=== PATIENT | female | born 1980 | race Caucasian/White ===

== ENCOUNTER 2021-08-30 09:10 | Outpatient (CLI) | payer MEDICAID, SELFPAY ==
--- NOTE | 2021-08-30 09:00 | DI.RAD_ITS ---
Exam(s) XR SHOULDER RT COMPLETE 2+V EXAM: XR SHOULDER RT COMPLETE 2+V CLINICAL HISTORY: shoulder pain. TECHNIQUE: 2D digital imaging was performed of the right shoulder. Three images were obtained. AP, Grashey, Y-view and axillary views were obtained. COMPARISON: No exams were available for comparison FINDINGS: BONES: No acute fracture is present. No bony destructive lesion is seen. There is an orthopedic ancho r in the humeral head. JOINTS: There is elevation of the clavicle relative to the acromion suggesting AC joint separation. There is also question of possible resection of a portion of the distal clavicle. Please correlate w ith surgical history. The glenohumeral joint appears well maintained. SOFT TISSUE: Normal. IMPRESSION: 1. Postsurgical changes in the right shoulder. 2. Findings of right AC joint separation. Please correlate with surgical history. 3. No acute fracture. DATA REPOSITORY: RADIATION DOSE DELIVERED:
== END 2021-08-30 09:11 | disposition home or self-care (01) ==
LOC: DIORS 09:10
PROVIDERS: PCP Nurse Practitioner Family; Referring Provider Nurse Practitioner Family; Visit Provider Student in an Organized Health Care Education/Training Program
DX: M25.511 Pain in right shoulder (principal)
CPT/HCPCS: 73030

== ENCOUNTER 2021-09-07 01:38 | Outpatient (CLI) | payer MEDICAID, SELFPAY ==
--- NOTE | 2021-09-07 06:45 | DI.MRI_ITS ---
Exam(s) MR UPPER JOINT RT WO EXAM: MR UPPER JOINT RT WO CLINICAL HISTORY: R SHOULDER PAIN,rotator cuff arthropathy,bursitis,impingement syndrome,. TECHNIQUE: Multiplanar multisequence MRI was performed. COMPARISON: CR XR SHOULDER RT COMPLETE 2+V from 08/30/2021 CR XR SHOULDER RT COMPLETE 2+V from 08/30/2021 FINDINGS: Postsurgical artifact is seen in the shoulder. BONES: There is no fracture or contusion pattern. JOINTS: Postsurgical changes are seen at the acromioclavicular joint. Mild edema is seen in the ends of both the distal clavicle and acromion. The glenohumeral joint is normal. TENDONS: Supraspinatus: Unremarkable. No evidence of a tendon tear. Infraspinatus: Unremarkable. Subscapularis: Unremarkable. [place]: Unremarkable. Biceps and [place]: A significant portion of the biceps tendon is obscured by artifact. The visualize d portion appear unremarkable. MUSCLES: Unremarkable. GLENOID LABRUM: Unremarkable on this noncontrast examination. SOFT TISSUES: Unremarkable. LIGAMENTS: Unremarkable. OTHER: There is a small amount of fluid in the subacromial bursa. IMPRESSION: 1. No evidence of a rotator cuff tear. 2. Postsurgical artifact in the right shoulder. 3. Subacromial bursitis. DATA REPOSITORY:
== END 2021-09-07 01:58 ==
PROVIDERS: PCP Nurse Practitioner Family; Visit Provider Student in an Organized Health Care Education/Training Program
DX: M25.511 Pain in right shoulder (principal); M75.41 Impingement syndrome of right shoulder; M75.51 Bursitis of right shoulder; M12.811 Other specific arthropathies, not elsewhere classified, right shoulder; Z98.890 Other specified postprocedural states
CPT/HCPCS: 73221

== ENCOUNTER 2021-09-29 02:12 | Outpatient (CLI) | payer MEDICAID, SELFPAY ==
--- NOTE | 2021-09-29 08:00 | DI.CT_ITS ---
Exam(s) CT UPPER EXTREMITY RT WO EXAM: CT UPPER EXTREMITY RT WO CLINICAL HISTORY: Surgery planning,ARTHRITIS RT GLENOHUMERAL JOINT,M19.011 TECHNIQUE: Imaging Protocol: Axial computed tomography images with coronal and sagittal reformatted images were created and reviewed. CONTRAST MATERIAL: Noncontrast COMPARISON: CR XR SHOULDER RT COMPLETE 2+V from 08/30/2021 FINDINGS: Exam was performed for purposes surgical planning. Bones: The osseous structures and articular surfaces are intact. There is no evidence of fracture or dislocation. Bony alignment is satisfactory. . No lytic or sclerotic lesions are identified. Metall ic density in humeral head related to previous surgery. Previous distal clavicular resection. Spurr ing at the glenoid. Mild spurring at the greater tuberosity. Soft Tissues: Normal. IMPRESSION: Degenerative changes of the glenohumeral joint. Postsurgical changes. RADIATION DOSE DELIVERED: 581.43mGy.cm Total DLP DATA REPOSITORY: All CT scans at this facility are submitted to the National Radiology Data Registry (NRDR) Dose Index Registry (DIR) with the [employer] ([employer]). RADIATION OPTIMIZATION: All CT scans at this facility use at least one of these dose optimization te chniques: automated exposure control; mA and/or kV adjustment per patient size (includes targeted exa ms where dose is matched to clinical indication); or iterative reconstruction.
== END 2021-09-29 02:32 ==
PROVIDERS: PCP Nurse Practitioner Family; Visit Provider Student in an Organized Health Care Education/Training Program
DX: M19.011 Primary osteoarthritis, right shoulder (principal); Z98.890 Other specified postprocedural states
CPT/HCPCS: 73200

== ENCOUNTER 2021-12-22 00:42 | Outpatient (CLI) | payer MEDICAID, SELFPAY ==
--- NOTE | 2021-12-22 08:00 | DI.RAD_ITS ---
Exam(s) RF JOINT INJECTION FLUORO GUID EXAM: RF JOINT INJECTION FLUORO GUID CLINICAL HISTORY: R SHOULDER INJ UNDER FLUORO,bursitis,arthritis,impingement [id number], TECHNIQUE: 2D and realtime digital imaging was performed. CONTRAST MATERIAL: Water soluble contrast was administered. COMPARISON: No exams were available for comparison FINDINGS: Fluoroscopy was provided for Dr. Sánchez during the performance of a right shoulder injection. Please refer to the procedure report for complete details. RADIATION DOSE DELIVERED: joey Arriola=0.116 mGy
--- NOTE | 2021-12-22 13:24 | W.PROCNOTE ---
Date of service: 12/22/21 Time of Service: 13:21 Procedure Note Date of procedure: 12/22/21 Procedure: Right Shoulder Injection Surgeon/Proceduralist/Physician: Rodolfo Velásquez Procedure Diagnosis: Right Shoulder Pain Procedure Indications: Diandra has had persistent pain of the RIGHT shoulder. Noninvasive measures have been tried. To serve as both diagnostic and therapeutic, an injection under fluoroscopy was recommended. I had discussed the risks of the procedure and the patient elected to proceed. Procedure Description: Diandra was greeted in the flouroscopy room. The correct side was identified and the consent was reviewed with the patient and signed. The patient was then placed in the supine position on the fluoroscopy table. The RIGHT shoulder was then prepped with Chloraprep. The anterior injection starting point was identiifed by bony landmarks and fluoroscopy. The skin and soft tissue in the tract of the injection was anesthetized with 1% Lidocaine. A spinal needle was then inserted deep into the shoulder joint at the level of the recess between the glenoid and superior humeral head. A small amount of Omnipaque solution was injected to confirm intraarticular placement. Once confirmed, the shoulder was injected with 5cc of 0.5% Bupivicaine and 80mg of Depo-Medrol. A bandaid was placed on the injection site. The patient tolerated the procedure well and noted improvement in pre-injection pain.
[2021-12-22] MEDS: methylPREDNISolone ACETATE 80 MG/ML VIAL IM (13:43)
[2021-12-22] MEDS: Bupivacaine 0.5% Pres-Free 10 ML VIAL 5 ML IJ (13:46)
[2021-12-22] MEDS: Omnipaque 300 MG/ML 10 ML BTL IJ (13:47)
== END 2021-12-22 01:02 ==
PROVIDERS: PCP Nurse Practitioner Family; Visit Provider Student in an Organized Health Care Education/Training Program
DX: M25.511 Pain in right shoulder
CPT/HCPCS: 20610; 77002; J1040

== ENCOUNTER 2022-02-08 15:11 | Outpatient (CLI) | payer MEDICAID, SELFPAY | END 2022-02-08 15:12 | disposition home or self-care (01) | LOC: DIORS 15:11 | PROVIDERS: PCP Nurse Practitioner Family; Referring Provider Nurse Practitioner Family; Visit Provider Student in an Organized Health Care Education/Training Program ==

== ENCOUNTER 2022-02-23 01:58 | Outpatient (CLI) | payer MEDICAID, SELFPAY ==
[2022-02-23 08:57] LABS: Abs Immature Grans 0.04 10^3/uL (0.0-0.06); Absolute Basophil Count 0.02 10^3/uL (0.0-0.2); Absolute Eosinophil Count 0.13 10^3/uL (0.0-0.7); Absolute Lymphocyte Count 3.25 10^3/uL (1.2-3.4); Absolute Monocyte Count 0.67 10^3/uL (0.1-0.8); Absolute Neutrophil Count 4.34 10^3/uL (1.2-6.7); Basophils % 0.2; Eosinophils % 1.5; HCT 42.3 % (36.0-46.0); Immature Grans % 0.5; Lymphocytes % 38.5; MCH 31.3 pg (27.0-33.0); MCHC 33.1 % (32.0-36.0); MCV 94 fL (80-95); MPV 9.3 fL (8.0-11.0); Monocytes % 7.9; Neutrophils % 51.4; Platelet Count 263 10^3/uL (130-400); RBC 4.48 10^6/uL (3.93-5.22); RDW 12.3 % (11.7-14.6); RDW-SD 42.6 fL; WBC 8.45 10^3/uL (4.4-10.8)
[2022-02-23 08:59] LABS: ESR 15 mm/hr (0-20)
--- NOTE | 2022-02-23 09:32 | DI.RAD_ITS ---
Exam(s) XR CHEST 2V PA LATERAL EXAM: XR CHEST 2V PA LATERAL CLINICAL HISTORY: PREOPERATIVE CLEARANCE,arthritis rt glenohumeral joint,tendinitis,[id number]. TECHNIQUE: 2D digital imaging was performed. COMPARISON: No exams were available for comparison FINDINGS: 2 views: Heart size is normal. The mediastinum is not widened. Lungs are clear. No infiltrates nor pleural effusions. There is evidence of previous surgery in the right shoulder. There is also healed right 8th rib frac ture. IMPRESSION: No acute pulmonary findings.Other findings as above. DATA REPOSITORY: RADIATION DOSE DELIVERED:
[2022-02-23 09:52] LABS: C-Reactive Protein 0.18 mg/dL (0.0-0.3)
== END 2022-02-23 01:59 | disposition home or self-care (01) ==
LOC: LBO 01:58
PROVIDERS: Visit Provider Student in an Organized Health Care Education/Training Program
DX: M25.511 Pain in right shoulder (principal); M19.011 Primary osteoarthritis, right shoulder; M75.21 Bicipital tendinitis, right shoulder; M75.41 Impingement syndrome of right shoulder; Z01.818 Encounter for other preprocedural examination; Z01.812 Encounter for preprocedural laboratory examination
CPT/HCPCS: 36415; 85652; 71046; 85025; 86140

== ENCOUNTER 2022-02-23 02:53 | Outpatient (CLI) | payer MEDICAID, SELFPAY ==
--- NOTE | 2022-02-23 09:00 | RT.EKG_ITS ---
APPROVED REPORT Exam: Resting ECG Reason for Exam: preop testing Patient Location: O HR:64 bpm ECG Measurements Heart Rate 64 AXIS NM 164 P 48 QRSd 93 QRS 59 QT 410 T 52 QTc 423 Conclusion Sinus rhythm...normal P axis, V-rate 50- 99 RSR' in V1 or V2, probably normal variant...small R' only Normal Electrocardiogram
== END 2022-02-23 02:54 | disposition home or self-care (01) ==
LOC: RT 02:53
PROVIDERS: Visit Provider Student in an Organized Health Care Education/Training Program
DX: Z01.818 Encounter for other preprocedural examination (principal)
CPT/HCPCS: 93005; 93010

== ENCOUNTER 2022-04-04 01:20 | Outpatient (CLI) | payer MEDICAID, SELFPAY ==
[2022-04-04 09:51] LABS: Source Nasal/Nares
[2022-04-04 12:42] LABS: COVID-19 PCR Negative (Negative)
== END 2022-04-04 01:21 | disposition home or self-care (01) ==
LOC: LBO 01:20
PROVIDERS: Visit Provider Student in an Organized Health Care Education/Training Program
DX: Z20.822 Contact with and (suspected) exposure to COVID-19 (principal); Z01.818 Encounter for other preprocedural examination
CPT/HCPCS: 87635

== ENCOUNTER 2022-04-06 08:03 | Day surgery (SDC) | payer MEDICAID, SELFPAY ==
[2022-04-06] VITALS (9 sets, daily range): BP systolic 111–134; BP diastolic 60–86; PULSE 63–82; RESP 12–21; TEMP 36.2–36.7; O2SAT 95–99; BMI 26.1
--- NOTE | 2022-04-06 07:15 | DI.RAD_ITS ---
Exam(s) XR SHOULDER RT COMPLETE 2+V EXAM: XR SHOULDER RT COMPLETE 2+V CLINICAL HISTORY: Portable in PACU postop. TECHNIQUE: 2D digital imaging was performed. COMPARISON: CR XR SHOULDER RT COMPLETE 2+V from 08/30/2021 FINDINGS: Postop views reveal satisfactory position alignment of the components of the newly placed shoulder pr osthesis. IMPRESSION: DATA REPOSITORY: RADIATION DOSE DELIVERED:
--- NOTE | 2022-04-06 07:25 | W.PM.DSUDISC ---
Discharge Plan Disposition Patient Disposition: HOME Condition: Stable Discharge Details Reason For Visit: Right shoulder surgery Attending Provider: Inder Sánchez Primary Care Provider: Jany Brandt Home Meds and New Rx's Prescriptions: New aspirin 81 mg tablet,delayed release (DR/EC) 81 mg PO DAILY 14 Days Qty: 14 0RF oxycodone 5 mg tablet 5 - 10 mg PO Q4H MDD 30 mg PRN (Reason: moderate to severe pain) Qty: 18 0RF naproxen 250 mg tablet 250 - 500 mg PO BID PRNQty: 40 0RF Rx Instructions: take with a meal Continued sertraline 25 mg tablet 100 mg PO DAILY lorazepam 0.5 mg tablet 0.5 mg PO DAILY PRN PRN Label Comments: TAKE ONE TABLET BY MOUTH ONCE A DAY BEFORE MEAL FOR 14 DAYS NEEDED FOR BREAKTHOUGH ANXIETY ONLY Discharge Instructions Additional Instructions: Surgery: Right anatomic total shoulder arthroplasty with revision biceps tenodesis and removal of hardware Activity: Do not lift anything heavier than a coffee. You should keep your arm at your side in a neutral position at all times except for gentle range of motion exercises, physical therapy, and essential activities. You should use the sling whenever you are out of the house. You may have to adjust the abduction pillow or remove it for comfort. At home it is best to remove the sling and rest the arm on a pillow at your side or support the operative side with your other hand. A physical therapy prescription will be sent to start in 2-3 weeks. Anatomic TSA Protocol: Postoperative Weeks 0-6 ?Immobilization: Sling may be removed for therapeutic exercises, resting in bed or chair, and bathing ?Motion exercises: Pendulum exercises, elbow range- of-motion exercises, wrist yaywz-mi-ogsyzj exercises, and energy conservation specialist strengthening ?Restrictions: No active internal rotation or backwards extension Postoperative Weeks 6-12 ?Immobilization: Sling discontinued ?Motion exercises: Shoulder passive range of motion, advancing to active-assisted range of motion, and finally active range of motion with a goal of forward flexion to 90? and external rotation of 20? ?Strengthening exercises: Light, resisted forward flexion, external rotation, and abduction limited to isometric exercises and therapy bands with concentric motions only. Continue energy conservation specialist strengthening ?Restrictions: No resisted internal rotation or backwards extension. No scapular retraction exercises with therapy bands Postoperative Months 3-12 ?Motion exercises: Increase hckjx-jr-tnabdg exercises to achieve full motion, with passive stretching at end ranges ?Strengthening: Begin resisted, internal rotation and backwards extension initially with isometric exercises advancing to light therapy bands and then weights. Advance other shoulder strengthening exercises to include the rotator cuff, deltoid, and scapular stabilizers. Advance to functional strengthening, including plyometric exercises and core strengthening. Prescriptions: Aspirin 81 mg take 1 daily to prevent a blood clot for 2 weeks Naproxen 250 mg take 1-2 every 12 hours with a meal as needed for moderate pain Oxycodone 5 mg take 1-2 every 4-6 hours as needed for severe pain You may use wmda-mzw-otztnub Tylenol (acetaminophen) as needed for mild pain. These pain medications may be taken all at once or in different combinations as needed. Also, recommend Colace (docusate) as a stool softener as surgery and pain medicine cause constipation. You may try lxmc-apx-jyfgura diphenhydramine (Benadryl) 25-50 mg nightly as a sleep aid Dressings: Leave dressing in place until follow-up. Keep clean and dry at all times. No showers please. Follow-up: 10-[address] Sánchez Please call the office during business hours with any questions or concerns. Let us know right away if you develop any redness, drainage, fevers, chest pain, or trouble breathing. Do not drink alcohol or drive for at least 24 hours after anesthesia. Stand Alone Forms: Anesthesia Discharge Inst., Anes.Nerve Block Instructions, Jarod Verdin (DSU) Discharge Orders Discharge Orders: Discharge Order (Routine); Ordered 04/06/22 Ordered By: Inder Sánchez DS: Diagnosis Discharge Diagnosis (1) Arthritis of right glenohumeral joint: Status: Acute
--- NOTE | 2022-04-06 09:37 | W.ANESPRE ---
General Info Date of Service Date Performed: 04/06/22 Height: 5 ft 6 in Weight: 73.4 kg Body Mass Index (BMI): 26.1 Surgical Procedure: Operation Date: 04/06/22 11:25 Proposed Procedure Side Surgeon p Anatomic Shoulder Total Arthroplasty, Possible Revision Biceps Tenodesis,Removal of Hardware Right Inder Sánchez MD Meds Allergies and Home Medications Allergies Allergy/AdvReac Type Severity Reaction Status Date / Time tramadol Allergy Intermediate Vomiting Verified 04/06/22 09:25 Home Medication Medication Instructions Recorded sertraline 25 mg tablet 100 mg PO DAILY 09/28/21 lorazepam 0.5 mg tablet 0.5 mg PO DAILY PRN PRN 04/06/22 Current Visit Medications: Current Medications Generic Name Dose Route Start Last Admin Trade Name Freq PRN Reason Stop Dose Admin Ringer's Solution 1,000 mls @ 60 mls/hr 04/06/22 06:00 IV 05/05/22 23:59 INFUSION IVAN Cefazolin Sodium 2,000 mg/ 100 mls @ 200 mls/hr 04/06/22 06:00 Sodium Chloride IVPB 04/06/22 18:00 PREOP IVAN Tranexamic Acid 1,000 mg/ 60 mls @ 360 mls/hr 04/06/22 06:00 Sodium Chloride IVPB 04/06/22 18:00 PREOP IVAN Cefazolin Sodium/Dextrose 1 gm in 50 mls @ 100 mls/hr 04/06/22 12:30 Ancef Duplex IVPB 04/06/22 12:59 ONCE ONE IV Miscellaneous Supplies 1 each 04/06/22 06:00 Iv Access IV 05/05/22 23:59 DIRECTED IVAN Naproxen 250 - 500 mg 04/06/22 07:22 Naproxen 500 Mg Tab PO BID PRN PRN Oxycodone HCl 5 - 10 mg 04/06/22 07:22 Oxycodone 5 Mg Tab PO Q4H PRN PRN Sodium Chloride 0 ml 04/06/22 06:00 Normal Saline Flush 10 Ml Syr IV 05/05/22 23:59 PRN PRN Sodium Chloride 0 ml 04/06/22 06:00 Normal Saline 10 Ml Vial IJ 05/05/22 23:59 DIRECTED PRN Sterile Water 0 ml 04/06/22 06:00 Water,Injection,Sterile 10 Ml Vial IJ 05/05/22 23:59 DIRECTED PRN PFSH Active Problems Active Problems: Problem Status Onset Code Esophageal foreign body T18.108A 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 MARTIN (generalized anxiety disorder) F41.1 Claustrophobia F40.240 Tobacco use Z72.0 Depressive disorder F32.9 Insomnia G47.00 Chronic migraine without aura G43.709 Hidradenitis suppurativa L73.2 Generalized abdominal pain R10.84 Family history of breast cancer Z80.3 Arthritis of right glenohumeral joint M19.011 Medical History Medical History Bursitis of shoulder, right Impingement syndrome of right shoulder Tendonitis of long head of biceps brachii of right shoulder Surgical History Surgical History EGD - MAC (03/03/18) History of arthroscopy of right shoulder Hx of hysterectomy Tobacco Smoking/Tobacco Use Status: Current-Occasional Tobacco Type: cigarettes Alcohol Alcohol Intake: never Substance Use Substance use: Never Substance use type: does not use Prental History History Para 2 Hx # Term Pregnancies Multiple births Hx # Pregnancies Ectopic pregnancies AB induced Hx Number of Living Children AB spontaneous Vital Signs and Lab Results Vital Signs Most Recent Vital Signs in EMR: Most Recent Vital Signs Temp Pulse Resp BP Pulse Ox 36.6 C 63 16 116/75 98 04/06/22 08:49 04/06/22 08:49 04/06/22 08:49 04/06/22 08:49 04/06/22 08:49 Lab Results Blood Type / Crossmatch: No Data to Display Complete Blood Count: No Data to Display Complete Metabolic Panel: No Data to Display Liver Function Panel: No Data to Display Coagulation Panel: No Data to Display Cardiac Panel: No Data to Display Arterial Blood Gas: No Data to Display Venous Blood Gas: No Data to Display Pancreas Panel: No Data to Display Thyroid Panel: No Data to Display Infectious Disease: Coronavirus (COVID-19)(PCR) Negative (Negative) 04/04/22 08:21 Coronavirus 2019 Source Nasal/Nares 04/04/22 08:21 Blood Cultures: No Data to Display Toxicology Panel: No Data to Display Panel: No Data to Display Imaging and Studies Imaging and Studies Study information below may be from another EMR and interpreted by another provider. Please see original notes in EMR for more complete details. EKG Summary: Conclusion Sinus rhythm...normal P axis, V-rate 50- 99 02/23/22 Anesthesia Assessment and Plan Anesthesia History Personal History: No History of Anesthesia Complications Family History: No Family History of Anesthesia Complications Exercise Tolerance Exercise Tolerance: Metabolic Equivalents>4 Pertinent Negatives Pertinent Negatives: No Symptoms of GERD, No Major Cardiovascular Symptoms or Complaints, No Major Pulmonary Symptoms or Complaints and No History of CVA/TIA Cardiac & Pulmonary Exam Cardiac Exam: Normal S1/S2 Heart Sounds Pulmonary Exam: Clear Bilateral Breath Sounds Implantable Cardiac Device Does patient have a Pacemaker or an ICD?: No Airway Exam Known Difficult Airway: No Mallampati Class: 3 Mouth Opening: Normal (> 3cm) Thyromental Distance: Less than 3 cm Neck Range of Motion: Full ROM Neck Circumference: Normal Teeth Condition: Normal Dentition ASA Classification ASA Score: ASA 2 Emergency Case?: No NPO Status NPO Status: NPO Clears >2 hours, Solids >8 hours Status Status: History of Hysterectomy Anesthesia Plan Resuscitation Status: Full Code Anesthesia Technique: General Anesthesia Airway Planned: Endotracheal Tube Pain Management: Surgeon and patient request nerve block Monitors Used: Standard Monitors
[2022-04-06] MEDS: Lactated Ringers 1,000 ML 60 ML IV (10:10)
[2022-04-06] MEDS: ceFAZolin 2,000 MG in Normal Saline 100 ML 200 MG IVPB (11:07)
--- NOTE | 2022-04-06 11:51 | W.ANESNERVE ---
Nerve Block Single Injection Procedure Date and Time Date Performed: 04/06/22 Procedure Start: 10:50 Location Where Procedure Performed Procedure Location: Day Surgery Unit Reason Performed: Postoperative Analgesia Requesting Provider: Inder Sánchez Timeout Performed Timeout Performed: Yes Monitoring Used ECG, Blood Pressure and SpO2 Sterility Sterility: Hand Hygiene, Surgical Cap, Surgical Mask, Sterile Gloves and Chlorhexidine Sedation Given During Procedure Sedation Given (Indicate Dose Given): Versed IV Dose:: 2mg Patient Mental Status Patient Mental Status: Awake Nerve Block 1st Nerve Block: Laterality: Right Block Type: Interscalene Needle / Catheter Used: 100mm SonoPlex II Local Anesthetic Bolus (Indicate Dose Given): Lidocaine used for local infiltration of skin, Bupivacaine 0.5% Dose:: 10mL and Exparel Dose:: 10ML Additives (Indicate Dose Given): None Ultrasound: Sterile probe cover and gel used Ultrasound Image Saved?: Yes Nerve Stimulator: Not Used Paresthesia: None Procedure Tolerated: No Complications Procedure Outcome: Successful Performed By: Lois Cummings Supervised By: Anyi Milian
[2022-04-06] MEDS: Bupivacaine 0.25% Pres-Free 30 ML VIAL (12:30)
[2022-04-06] MEDS: Lidocaine 1% Multi-Dose W/EPI 1/100,000 50 ML VIAL (12:30)
--- NOTE | 2022-04-06 15:02 | DI.RAD_ITS ---
Exam(s) XR SHOULDER RT COMPLETE 2+V EXAM: XR SHOULDER RT COMPLETE 2+V CLINICAL HISTORY: REMOVAL OF FORGIEN BODY. TECHNIQUE: 2D digital imaging was performed. COMPARISON: No exams were available for comparison FINDINGS: Fluoroscopy was provided during orthopedic procedure on right shoulder See procedure report for details Total fluoroscopy time 8.4 seconds; cumulative dose 0.4442mGy IMPRESSION: DATA REPOSITORY: RADIATION DOSE DELIVERED:
--- NOTE | 2022-04-06 16:58 | W.ANESPOSTOP ---
Postoperative Evaluation Date, Time and Location Date Performed: 04/06/22 Time Performed: 16:59 Patient Location: PACU Vital Signs Most Recent Imported Vital Signs: Most Recent Vital Signs Temp Pulse Resp BP Pulse Ox 36.6 C 75 15 117/72 95 04/06/22 16:45 04/06/22 16:45 04/06/22 16:45 04/06/22 16:45 04/06/22 16:45 Pain Score Most Recent Pain Score: Most Recent Pain Score Pain Level 0 04/06/22 16:45 Assessment Mental Status: Arousable with meaningful communication Airway and Respiratory Function: Patent airway with normal (patient baseline) respiratory exam Cardiovascular Function: Hemodynamically Stable Hydration Status: Adequately Hydrated Nausea & Vomiting: No Nausea or Vomiting Pain: Pt. Denies Any Pain Peripheral Nerve Block: Regional nerve block not resolved at time of post operative discharge
--- NOTE | 2022-04-06 17:17 | ROE_ITS ---
Operative Note Operative Note DATE OF PROCEDURE: 04/06/22 PRE-OP DIAGNOSIS: Right: 1. Glenohumeral arthritis 2. Painful arthroscopic biceps tenodesis 3. Retained hardware: Metallic suture anchor POST-OP DIAGNOSIS: same PROCEDURE: Right: 1. Anatomic total shoulder arthroplasty, CPT # 69799 2. Revision open biceps tenodesis, CPT # 32911: Conversion of prior arthroscopic biceps tenodesis to open suprapectoral tenodesis 3. Removal of hardware, CPT #50577 The assistant prosecuting attorney was medically required as this procedure involves retraction, protection of neurovascular structures, and manipulation of multiple instruments and implants at the same time, which cannot be done without a skilled assistant prosecuting attorney. SURGEON: Inder Sánchez FLEXOGRAPHIC PRESS HELPER: Roberta Santana ANESTHESIA TYPE: Local By Surgeon, General LMA/ETT and Primary Nerve Block Refer to Anesthesia Record ESTIMATED BLOOD LOSS: 150 COMPLICATIONS: None Patient was transported to: PACU Patient's condition: stable Implants: DePuy Inhance shoulder system: Small stemless humerus, head size 44 x 15.25 mm. Small 24 mm glenoid. Indications: Please see complete medical record for details. Findings: Intact rotator cuff. Significant humeral head and moderate glenoid cartilage loss. Prior arthroscopic biceps tenodesis at the superior aspect of the bicipital groove with retained plastic and metal suture anchor. Procedure Description: In the operating room, general anesthesia was induced. The patient was positioned beachchair on the operating room table. All bony prominences were well-padded. Preoperative antibiotics were administered. The shoulder was prepped and draped in the usual sterile fashion for shoulder arthroplasty. The correct patient, procedure, and side of the procedure were all verified prior to incision. The deltopectoral approach was taken to the anterior shoulder. Care was taken to bluntly dissect the interval between the deltoid and pectoralis major muscles and to identify the cephalic vein within its fat stripe. The the vein was mobilized laterally. Subdeltoid space and conjoined tendon were freed of adhesions. The long head of the biceps tendon was identified tenodesed just lateral to the lesser tuberosity at the superior aspect of the bicipital groove. The uppermost margin of the pectoralis major tendon was released from the proximal humerus. The long head of the biceps tendon was tenodesed in situ using SutureTape in a [id number] fashion securing it superior margin the pectoralis major tendon. The biceps tendon was amputated from its suture anchor this trajectory followed proximally to identify the rotator interval. Suture anchor was flush with bicipital groove and unable to be removed at this time. A subscapularis peel was performed taking care to release the entire tendon in a full-thickness fashion from superior to inferior and lateral to medial while bringing the arm gradually into external rotation. Care was taken to avoid the axillary nerve by only working on the bone inferiorly and medially. The subscapularis was tagged using SutureTape in a Adolph-Otis fashion and traction used confirm appropriate mobilization of the subscapularis tendon after gentle blunt dissection was used to free up the space anterior and posterior to it. The supraspinatus and infraspinatus were inspected and intact. Appropriate coagulation was achieved especially interiorly. The anatomic neck was cut using an oscillating saw with the humeral head bone brought back table for sizing and saved in case there was a need for future bone grafting. The proximal humeral protection bone quality was good so preparation proceeded for stemless implant. The humeral head size was confirmed and central location established before driving the central pin bicortically. 30 degrees retroversion was confirmed and appropriate for patient anatomy. The reamer was done over the pin followed by the blaze. The reamer had encountered part of the retained suture anchor and so did the blaze. The suture anchor was still solidly implanted and the ream and place were able to be fully seated so the anchor was left in at this time. The place was maintained as a humeral cut protection plate and attention was turned to the glenoid. The anterior capsule was released and a circumferential labral resection was performed. Care was taken inferiorly to work on bone only between 5 and 7:00 o'clock and bluntly elevate tissues inferiorly. The small size glenoid was confirmed and placed centrally with the guidepin appropriately driven into the far cortex. The 1 step prep glenoid reamer was then used to the appropriate depth establishing the spherical backside, central post hole, and peripheral ring. The glenoid trial was used to confirm glenoid preparation. Glenoid was irrigated then dried. A small syringe was used to apply and pressurized cement only in the peripheral ring. The glenoid implant was implanted and pressure maintained 18 minutes until cement hardened. The glenoid was inspected and had good fit and excellent fixation. Attention was turned back to the proximal humerus, which was delivered from the wound and maintained in external rotation. Trialing was done with the thinner of the appropriately sized diameter humeral heads. There was about 40-50% translation across the joint posteriorly and overall very stable and appropriate tension on soft tissues. The blaze was removed. The final implant required rem oval of the retained metallic suture anchor for proper seating. The suture anchor was firmly held in place and had to be driven from outside in metaphysis and then became lodged in the anterior chest pectoralis muscles. He was carefully located using C arm fluoroscopy and blunt dissection and teased away from the soft tissues. The unusual plastic and metal implant appeared to be removed in entirety. Fluoroscopy confirmed complete removal. The hole from bicipital groove to the central metaphysis was used to pass 4 suture tapes for later subscapularis repair. The proximal humerus was thoroughly irrigated and dried. A small amount of vancomycin powder was distributed. The stemless implant was impacted part of the way prior to loading the 4 suture tapes high middle and low through the respective holes and then impacted the majority of the way with excellent bone fixation. The head was assembled onto its taper and then impacted onto the stemless implant completing seating of both. The shoulder was reduced and taken through range of motion. Good stability and appropriate tension on the rotator cuff confirmed. The shoulder was copiously irrigated with Betadine and normal saline. Vancomycin powder was distributed deeply about the shoulder and through subcutaneous tissues. The arm was placed in about 30 degrees of external rotation. The subscapularis was reduced and repaired using the pairs of StureTape in a ggje-yt-drym fashion. The lateral rotator interval was also closed using suture tape in a [id number] fashion. The arm was taken into wide external rotation without any displacement of the subscapularis repair. The deltopectoral interval was well approximated and only required a few 0 Vicryl stitches to bury the vein safely.. Subcutaneous tissue was irrigated then closed using 2-0 Monocryl in a buried interrupted fashion. Skin was closed using 3-0 Monocryl in a buried subcuticular fashion. Skin glue was applied to the incision. A silver impregnated bandage was placed over the incision. The extremity was placed into a shoulder immobilizer. The patient awoke from anesthesia without complication and was taken to the recovery room in stable c ondition.
[2022-04-06] MEDS: ceFAZolin 1 GM/50 ML BAG IVPB (17:34)
== END 2022-04-06 18:29 | disposition home or self-care (01) ==
PROVIDERS: Visit Provider Student in an Organized Health Care Education/Training Program
PROC: (CPT 23472; principal; 2022-04-06 11:15)
DX: M19.011 Primary osteoarthritis, right shoulder (principal); T84.84XA Pain due to internal orthopedic prosthetic devices, implants and grafts, initial encounter; F41.1 Generalized anxiety disorder; F17.210 Nicotine dependence, cigarettes, uncomplicated
CPT/HCPCS: 23472; 20680; 23430; 76942; 73030; J0690; J1100; J2250; J2370; J2405; J2704

== ENCOUNTER 2022-04-19 10:53 | Outpatient (CLI) | payer MEDICAID, SELFPAY ==
--- NOTE | 2022-04-19 10:30 | DI.RAD_ITS ---
Exam(s) XR SHOULDER RT COMPLETE 2+V EXAM: XR SHOULDER RT COMPLETE 2+V INDICATION: RIGHT SHOULDER F/U. COMPARISON: CR XR SHOULDER RT COMPLETE 2+V from 04/06/2022 XA XR SHOULDER RT COMPLETE 2+V from 04/06/2022 TECHNIQUE: 2D digital imaging was performed. Two views. FINDINGS: A total shoulder prosthesis is noted. There is a slight inferior subluxation of the humeral componen t with respect to the glenoid component. There is no evidence of fracture. There has been resection of the distal clavicle. DATA REPOSITORY: RADIATION DOSE DELIVERED:
== END 2022-04-19 10:54 | disposition home or self-care (01) ==
LOC: DIORS 10:53
PROVIDERS: Visit Provider Student in an Organized Health Care Education/Training Program
DX: S43.031D Inferior subluxation of right humerus, subsequent encounter (principal); X58.XXXD Exposure to other specified factors, subsequent encounter
CPT/HCPCS: 73030

== ENCOUNTER 2022-05-16 14:39 | Outpatient (CLI) | payer MEDICAID, SELFPAY ==
--- NOTE | 2022-05-16 13:45 | DI.RAD_ITS ---
Exam(s) XR SHOULDER RT COMPLETE 2+V EXAM: XR SHOULDER RT COMPLETE 2+V CLINICAL HISTORY: right shoulder f/u TECHNIQUE: COMPARISON: CR XR SHOULDER RT COMPLETE 2+V from 04/19/2022 FINDINGS: Two views were obtained. There is a total shoulder joint replacement position. The components appea r well seated. No other significant bony abnormality seen. IMPRESSION: RADIATION DOSE DELIVERED: Total DLP
== END 2022-05-16 14:40 | disposition home or self-care (01) ==
LOC: DIORS 14:53
PROVIDERS: PCP Nurse Practitioner Family; Referring Provider Nurse Practitioner Family; Visit Provider Student in an Organized Health Care Education/Training Program
DX: Z96.611 Presence of right artificial shoulder joint (principal)
CPT/HCPCS: 73030

== ENCOUNTER 2022-06-27 13:50 | Outpatient (CLI) | payer MEDICAID, SELFPAY ==
--- NOTE | 2022-06-27 13:00 | DI.RAD_ITS ---
Exam(s) XR SHOULDER RT COMPLETE 2+V EXAM: XR SHOULDER RT COMPLETE 2+V CLINICAL HISTORY: right shoulder f/u. TECHNIQUE: 2D digital imaging was performed of the right shoulder. Two images were obtained. AP an d Y views were obtained. COMPARISON: CR XR SHOULDER RT COMPLETE 2+V from 05/16/2022 FINDINGS: BONES: No acute fracture is present. No bony destructive lesion is seen. JOINTS: There is stable elevation of the distal clavicle relative to the acromion. There are stable postsurgical changes of a right total shoulder arthroplasty. SOFT TISSUE: Normal. IMPRESSION: Stable right TSA. DATA REPOSITORY: RADIATION DOSE DELIVERED:
== END 2022-06-27 13:51 | disposition home or self-care (01) ==
LOC: DIORS 13:50
PROVIDERS: PCP Nurse Practitioner Family; Visit Provider Student in an Organized Health Care Education/Training Program
DX: Z96.611 Presence of right artificial shoulder joint (principal)
CPT/HCPCS: 73030

== ENCOUNTER 2022-08-30 13:43 | Outpatient (CLI) | payer MEDICAID, SELFPAY ==
--- NOTE | 2022-08-30 13:00 | DI.RAD_ITS ---
Exam(s) XR SHOULDER RT COMPLETE 2+V EXAM: XR SHOULDER RT COMPLETE 2+V CLINICAL HISTORY: f/u surgery. TECHNIQUE: 2D digital imaging was performed. Four images were obtained. AP, axillary and Y views we re obtained. COMPARISON: CR XR SHOULDER RT COMPLETE 2+V from 06/27/2022 FINDINGS: BONES: There are stable post operative changes present. No fracture or dislocation. JOINTS: The orthopedic hardware is in good position. No evidence of hardware loosening. The acromio clavicular joint is unchanged in alignment. SOFT TISSUE: Normal. IMPRESSION: Stable postoperative changes. DATA REPOSITORY: RADIATION DOSE DELIVERED:
== END 2022-08-30 13:44 | disposition home or self-care (01) ==
LOC: DIORS 13:43
PROVIDERS: PCP Nurse Practitioner Family; Referring Provider Nurse Practitioner Family; Visit Provider Student in an Organized Health Care Education/Training Program
DX: Z96.611 Presence of right artificial shoulder joint; G56.21 Lesion of ulnar nerve, right upper limb; S14.3XXD Injury of brachial plexus, subsequent encounter; Z98.890 Other specified postprocedural states
CPT/HCPCS: 73030

== ENCOUNTER 2023-01-17 00:55 | Outpatient (CLI) | payer MEDICAID, SELFPAY ==
--- NOTE | 2023-01-17 08:45 | DI.CT_ITS ---
Exam(s) CT UPPER EXTREMITY RT WO EXAM: CT UPPER EXTREMITY RT WO CLINICAL HISTORY: evaluate anatomic replacement and rotator cuff del,S/P ARTHROPLASTY,[id number]. TECHNIQUE: Imaging Protocol: Axial computed tomography images with coronal and sagittal reformatted images were created and reviewed. COMPARISON: CT CT UPPER EXTREMITY RT WO from 09/29/2021 CR XR SHOULDER RT COMPLETE 2+V from 08/30/2022 FINDINGS: There is artifact from the patient's right total shoulder replacement. This significantly inhibits e valuation at the rotator cuff insertion sites onto the greater tuberosity. Bones: The patient has a total right shoulder replacement. No lucencies are seen about the orthoped ic hardware. The bones are intact. The glenohumeral joint alignment appears within normal limits. No cellulitic or osteomyelitic changes are identified. The acromioclavicular joint is grossly unrema rkable. No lytic or sclerotic lesions are identified. Soft Tissues: The visualized portions of the rotator cuff muscles show normal size. No fatty atrophy is identified. No obvious rotator cuff complete tear with retraction is seen. There is a triangula r nodule associated with the minor fissure likely reflecting lymph node. IMPRESSION: Right total shoulder replacement which appears in good position. RADIATION DOSE DELIVERED: Total DLP Total DLP DATA REPOSITORY: All CT scans at this facility are submitted to the National Radiology Data Registry (NRDR) Dose Index Registry (DIR) with the [employer] ([employer]). RADIATION OPTIMIZATION: All CT scans at this facility use at least one of these dose optimization te chniques: automated exposure control; mA and/or kV adjustment per patient size (includes targeted exa ms where dose is matched to clinical indication); or iterative reconstruction.
== END 2023-01-17 01:15 ==
LOC: DI 00:56
PROVIDERS: PCP Nurse Practitioner Family; Visit Provider Student in an Organized Health Care Education/Training Program
DX: Z96.621 Presence of right artificial elbow joint (principal); Z47.1 Aftercare following joint replacement surgery
CPT/HCPCS: 73200